=== PATIENT | female | born 1955 | race Caucasian/White ===

== ENCOUNTER → 2019-09-12 | Outpatient (CLI) | payer BC ==
[2019-09-12 12:37] LABS: CREATININE, serum 1.06 (0.52-1.25)
== END ==
LOC: COL.LAB 11:53
PROVIDERS: Otolaryngology
DX: R07.0 Pain in throat (principal)

== ENCOUNTER → 2020-03-18 | Outpatient (CLI) | payer BC | LOC: MC.RAD 14:19 | DX: Z12.31 Encounter for screening mammogram for malignant neoplasm of breast (principal) ==

== ENCOUNTER → 2021-04-16 | Outpatient (CLI) | payer BC | LOC: MC.RAD 09:58 | DX: Z12.31 Encounter for screening mammogram for malignant neoplasm of breast (principal); Z98.82 Breast implant status ==

== ENCOUNTER → 2022-02-25 | Outpatient (CLI) | payer MEDICARE, BC | LOC: MC.RAD 13:40 | DX: N63.20 Unspecified lump in the left breast, unspecified quadrant (principal) ==